=== PATIENT | male | born 1970 | race Hispanic/Latino ===

== ENCOUNTER 2021-11-26 11:23 | Emergency (ER) | payer OTHER, SELFPAY ==
--- NOTE | 2021-11-26 11:26 | ED.GENADULT ---
HPI - General Adult General Chief complaint: Unspecified Stated complaint: high blood pressure Time Seen by Provider: 11/26/21 11:30 Source: patient and RN notes reviewed Mode of arrival: ambulatory Limitations: no limitations History of Present Illness HPI narrative: 51-year-old male with a history of hypertension presents to the [facility] with complaints of left-sided chest pressure radiating to his neck and arm, reports intermittent numbness tingling in his left arm. Patient reports that he woke up this morning, checked his blood pressure and its been in the 180s over 1 teens since this morning. Reports that he did take his blood pressure medication. Denies any nausea, vomiting, diaphoresis. Patient states he does have a pinched nerve in the lower cervical spine, normally affects just the right side. History of PTSD Related Data Home Medications Medication Instructions Recorded Confirmed lisinopril 40 mg tablet 40 mg PO DAILY 11/26/21 11/26/21 naproxen 500 mg tablet 500 mg PO BID 11/26/21 11/26/21 Allergies Allergy/AdvReac Type Severity Reaction Status Date / Time No Known Allergies Allergy Verified 11/26/21 11:32 Review of Systems Review of Systems: All systems reviewed & are unremarkable except as noted in HPI and below Constitutional: Constitutional: Reports no additional constitutional complaints, Denies chills and Denies fever(s) Eyes: Eyes: Reports no additional eye complaints ENT: Reports system reviewed and no additional complaints, except as documented Cardiovascular: Cardiovascular: Reports as per HPI and Reports chest pain Respiratory: Respiratory: Reports no additional respiratory complaints Gastrointestinal: Gastrointestinal: Reports no additional gastrointestinal complaints Musculoskeletal: Musculoskeletal: Reports no additional musculoskeletal complaints Integumentary/Breasts: Skin/Breast: Reports system reviewed and no additional complaints, except as docu Neurologic: Reports system reviewed and no additional complaints, except as documented Psychiatric: Psychiatric: Reports no additional psychiatric complaints Allergic/Immunologic: Allergic/Immunologic: Reports no additional allergic/immunologic complaints [facility] Past Medical History Medical History (Updated 11/26/21 @ 11:56 by Cece Dutta APRN) Chronic neck pain History of high blood pressure PTSD (post-traumatic stress disorder) Surgical History Surgical History (Updated 11/26/21 @ 11:55 by Cece Dutta APRN) No pertinent past surgical history Social History Social History (Updated 11/26/21 @ 11:55 by Cece Dutta APRN) Gender identity (if verbalized by the patient): Male Comments At the time of my signature, I reviewed and agree with the nursing past medical, surgical, social, and family history. There is no relevant family history pertinent to the patient complaint. Exam Const: General: healthy appearing, no acute distress and alert Nutritional Appearance: well nourished Orientation/consciousness: patient oriented x3 Limitations: no limitations HENMT: Head: normal to inspection Ears: external ears normal Eyes: General: appearance normal, both eyes and all related structures Pupils: Equal, round and reactive pupils present Neck: Neck: normal visual inspection, no lymphadenopathy and no meningeal signs Chest: Chest palpation & inspection: normal inspection of the chest Resp: Effort & Inspection: normal respiratory effort and no use of accessory muscles Auscultation: clear to auscultation bilaterally, no crackles, no rales, no rhonchi and no wheezes Cardio: Rate: regular rate Rhythm: regular rhythm Skin: General skin exam: normal color Rashes: no rashes Wounds: no wounds Neuro: General: patient oriented x3, moves all extremities, no meningeal signs and no focal motor deficits Cranial nerves: Yes Equal, round and reactive pupils present Speech: normal speech Gait exam (Neuro): Normal gai
[2021-11-26 11:33] VITALS: BP 187/113; PULSE 66; RESP 16; TEMP 36.8; O2SAT 100
--- NOTE | 2021-11-26 11:43 | ECG_ITS ---
Measurements Intervals [place] Rate: 58 P: 15 LA: 152 QRS: -1 QRSD: 101 T: 7 QT: 393 QTc: 387 Interpretive Statements SINUS BRADYCARDIA POSSIBLE RIGHT VENTRICULAR CONDUCTION DELAY [RSR (QR) IN V1/V2] BORDERLINE ECG NO PREVIOUS ECG AVAILABLE FOR COMPARISON Electronically Signed On 11-26-2021 14:47:28 CDT by Ruben HUGHES
== END 2021-11-26 11:56 | disposition short-term general hospital (02) ==
PROVIDERS: Emergency Provider Nurse Practitioner
DX: R07.9 Chest pain, unspecified (principal); I10 Essential (primary) hypertension
CPT/HCPCS: 93005; 99213; G0463

== ENCOUNTER 2021-11-26 12:09 | Emergency (ER) | payer OTHER, SELFPAY ==
[2021-11-26] VITALS (12 sets, daily range): BP systolic 118–181; BP diastolic 79–100; PULSE 58–73; RESP 14–18; TEMP 36.6; O2SAT 94–100
--- NOTE | ~2021-11-26 | XR_ITS ---
EXAMINATION: XR chest 2V DATE: 11/26/2021 12:50 INDICATION: Chest pressure TECHNIQUE: PA and lateral views of the chest are obtained. COMPARISON: None available FINDINGS: The lungs are free of acute opacities. No pleural effusion or pneumothorax. The cardiomedia stinal silhouette is normal. The visualized bones and soft tissues are unremarkable. IMPRESSION: 1. No acute cardiopulmonary abnormality. Reviewed, dictated and finalized at location A.
--- NOTE | 2021-11-26 12:13 | ECG_ITS ---
Rate 64 [place] 159 QRSd 106 QT 384 QTc 398 --[place]-- P 36 QRS 1 T 10 SINUS RHYTHM WITH SINUS ARRHYTHMIA POSSIBLE RIGHT VENTRICULAR CONDUCTION DELAY [RSR (QR) IN V1/V2] Electronically Signed On 11-27-2021 13:49:53 CDT by Aidan Gates M.D. COMPARED TO ECG 11/26/2021 11:44:43 SINUS ARRHYTHMIA NOW PRESENT MTDD
--- NOTE | 2021-11-26 12:26 | ED.CHESTPAIN ---
HPI - Chest Pain General Chief Complaint: Chest Pain Stated Complaint: chest pain Time Seen by Provider: 11/26/21 12:16 History of Present Illness HPI narrative: This is a 51-year-old male with past medical history of hypertension, who presents the emergency department complaining of chest and neck pain. He states he woke this morning at approximately 5 and noticed a sore and pressure-like sensation in the chest, between the shoulders and the neck. This was associated tingling sensation in the left arm. He states last night, he ate a particularly salty pizza. He states he took an aspirin with improvement of the sensation. Approximately 2 hours prior to presentation patient exercised on elliptical and noted recurrence of the sensation, associated with lightheadedness. He denies known sick contacts, weakness/numbness, abdominal pain, nausea or vomiting. Related Data Home Medications Medication Instructions Recorded Confirmed lisinopril 40 mg tablet 40 mg PO DAILY 11/26/21 11/26/21 naproxen 500 mg tablet 500 mg PO BID 11/26/21 11/26/21 Allergies Allergy/AdvReac Type Severity Reaction Status Date / Time No Known Allergies Allergy Verified 11/26/21 12:15 Review of Systems Review of Systems: CONSTITUTIONAL: Denies fever, chills, or sweats. EYES: Denies visual changes, redness, or discharge. ENT: Denies rhinorrhea, congestion, sore throat, or otalgia. CARDIOVASCULAR: chest pain, Denies palpitations, or edema. RESPIRATORY: Denies cough or dyspnea. GASTROINTESTINAL: Denies abdominal pain, nausea, vomiting, or diarrhea. GENITOURINARY: Denies dysuria or hematuria. SKIN: Denies rash or itching. MUSCULOSKELETAL: Denies back pain, joint pain, or myalgia. NEUROLOGIC: Denies headache, numbness, dizziness, or weakness. PSYCHIATRIC: Denies anxiety or depression. [facility] Past Medical History Medical History (Updated 11/26/21 @ 13:36 by Alfred Haywood MD) Chronic neck pain History of high blood pressure PTSD (post-traumatic stress disorder) Surgical History Surgical History (Updated 11/26/21 @ 11:55 by Cece Dutta APRN) No pertinent past surgical history Social History Social History (Updated 11/26/21 @ 11:55 by Cece Dutta APRN) Gender identity (if verbalized by the patient): Male Exam Narrative: GENERAL: Well-appearing, well-nourished, and in no acute distress. HEAD: Normocephalic, atraumatic. EYES: PERRLA and EOMI. ENT: Nares clear, no rhinorrhea or epistaxis. Mucous membranes moist. Oropharynx without tonsillar hypertrophy exudate or other lesions. NECK: Supple. No adenopathy or masses. No carotid bruits or JVD CHEST: Clear to auscultation. No respiratory distress. No wheezes rales or rhonchi HEART: Regular rate and rhythm. No murmur heard. Normal peripheral pulses. ABDOMEN: Soft, nontender, nondistended, normal active bowel sounds. EXTREMITIES: Normal range of motion. No edema. SKIN: Warm, dry, no rash. NEURO: No focal deficits. Alert and oriented x3. PSYCH: Normal mood and affect. Course Course Emergency Course: 12:59 - Initial troponin negative. Chest x-ray unremarkable. HEART Score 2. 13:34 - Reassessed patient. He states his symptoms have improved. His blood pressure has reduced to 125/79 without medication intervention. My suspicion for cardiac cause is low at this time. Considering the timing of onset of his symptoms, I believe 1 troponin is sufficient. Discussed return and emergency precautions with the patient including signs/symptoms of ME and arrhythmia. He voiced understanding and is comfortable with the plan. All questions answered to his satisfaction. Vital Signs Vital signs: Vital Signs Temperature 97.9 F 11/26/21 12:10 Pulse Rate 58 L 11/26/21 12:10 Respiratory Rate 16 11/26/21 12:10 Blood Pressure 181/99 H 11/26/21 12:10 Pulse Oximetry 98 11/26/21 12:10 Oxygen Delivery Room Air 11/26/21 12:10 Temperature 97.9 F 11/26/21 12:10 Pulse Rate 73
[2021-11-26 12:28] LABS: Basophils Percent Auto 0.4 % (0.2-1.2); Eosinophils Percent Auto 0.1 % (0-4.4); Hemoglobin 15.8 g/dL (14.0-18.0); Immature Granulocyte Absolute 0.01 K/mm3 (0.00-0.031); Immature Granulocyte Percent A 0.1 % (0-0.5); Lymphocytes Absolute Auto 1.38 K/mm3 (0.9-3.2); Mean Corpuscular HGB Conc 32.9 g/dl (32-36); Mean Corpuscular Hemoglobin 29.5 pg (26-34); Mean Corpuscular Volume 89.7 fl (80-100); Mean Platelet Volume 10.9 fl (7.4-10.4); Monocytes Absolute Auto 0.5 K/mm3 (0.1-0.6); Monocytes Percent Auto 6.8 % (2.6-8.5); Neutrophils Percent Auto 72.6 % (45.5-73.1); Platelet Count Result 197 k/mm3 (150-375); Red Blood Count 5.35 M/mm3 (4.6-6.20); Red Cell Distribution Width 12.6 % (11.5-14.5); White Blood Count 6.9 K/mm3 (4.5-10.0)
[2021-11-26] MEDS: FAMOTIDINE 20 MG TABLET PO (12:37)
[2021-11-26 12:39] LABS: Partial Thromboplastin Time 25.4 SECONDS (22.3-36.8); Prothrombin Time 12.9 Seconds (11.1-14.7)
[2021-11-26 12:40] LABS: Alanine Aminotransferase 34 U/L (6-50); Albumin Level 4.8 g/dL (3.5-5.1); Alkaline Phosphatase 61 U/L (38-126); Anion Gap 9 mmol/L (8-16); Aspartate Amino Transferase 33 U/L (17-59); Bilirubin,Total 0.8 mg/dL (0.2-1.3); Blood Urea Nitrogen 19 mg/dL (9-20); Calcium 9.9 mg/dL (8.4-10.2); Carbon Dioxide 29 mmol/L (22-30); Chloride 100 mmol/L (98-107); Estimated CRCL calculation 111 ml/min; Estimated Glomerular Filt Rate > 60; Glucose 116 mg/dL (65-110); Lipase 81 U/L (23-300); Potassium 4.2 mmol/L (3.4-5.0); Sodium 138 mmol/L (137-145)
--- NOTE | 2021-11-26 12:42 | PC.NURSE ---
pt. took ASA prior to arrival
[2021-11-26 12:52] LABS: Troponin I < 0.012 ng/mL (0.000-0.034)
== END 2021-11-26 13:54 | disposition home or self-care (01) ==
PROVIDERS: Emergency Medicine; Emergency Provider Preventive Medicine Aerospace Medicine
DX: R07.89 Other chest pain (principal); I10 Essential (primary) hypertension; R94.31 Abnormal electrocardiogram [ECG] [EKG]
CPT/HCPCS: 36415; 71046; 80053; 83690; 84484; 85025; 85610; 85730; 93005; 99284; A9270